=== PATIENT | male | born 1960 | race Caucasian/White ===

== ENCOUNTER 2023-05-20 07:39 | Outpatient (OUT) | payer OTHER, SELFPAY ==
[2023-05-20 08:13] LABS: Basophils Absolute Auto 0.1 10^3/uL (0.0-0.1); Basophils Percent Auto 1.2 % (0.2-2.0); Eosinophils Absolute Auto 0.2 10^3/uL (0.0-0.7); Eosinophils Percent Auto 3.1 % (0.9-7.0); Hematocrit 46.5 % (42.0-54.0); Immature Granulocytes Abs Auto 0.02 10^3/uL (0.00-0.03); Immature Granulocytes Pct Auto 0.3 % (0.0-0.5); Lymphocytes Absolute Auto 1.7 10^3/uL (1.2-3.8); Lymphocytes Percent Auto 29.3 % (20.5-60.0); Mean Corpuscular HGB Conc 34.4 g/dL (29.9-35.2); Mean Corpuscular Hemoglobin 30.5 pg (25.9-34.0); Mean Corpuscular Volume 88.7 fL (80.0-94.0); Mean Platelet Volume 10.6 fL (9.5-13.5); Monocytes Absolute Auto 0.6 10^3/uL (0.3-0.8); Monocytes Percent Auto 9.6 % (1.7-12.0); Neutrophils Absolute Auto 3.3 10^3/uL (1.4-6.5); Neutrophils Percent Auto 56.5 % (43.0-75.0); Platelet Count 228 10^3/uL (150-450); Red Blood Count 5.24 10^6/uL (4.70-6.10); Red Cell Distribution Width 12.5 % (11.0-15.0); White Blood Count 5.8 10^3/uL (4.0-11.0)
[2023-05-20 08:44] LABS: Alanine Aminotransferase 52 U/L (16-63); Albumin Globulin Ratio 1.2; Albumin Level 4.2 g/dL (3.4-5.0); Alkaline Phosphatase 55 U/L (46-116); Anion Gap 11.2; Aspartate Amino Transferase 25 U/L (15-37); BUN Creatinine Ratio 12.1; Calcium 8.9 mg/dL (8.5-10.1); Carbon Dioxide 28.8 mmol/L (21.0-32.0); Chloride 103 mmol/L (98-107); Chol HDL Ratio 2.5; Cholesterol 131 mg/dL (<=200); Estimated GFR (African America >60 (>=60); Estimated GFR (Non-African Ame 59 (>=60); Globulin 3.4 g/dL; Glucose 105 mg/dL (74-106); HDL Cholesterol 52 mg/dL (40-60); LDL Cholesterol Calculated 66.6 mg/dL; Sodium 139 mmol/L (136-145); Total Protein 7.6 g/dL (6.4-8.2); Triglycerides 62 mg/dL (<=150); VLDL CHOLESTEROL 12.4 mg/dL
== END 2023-05-20 07:40 | disposition home or self-care (01) ==
LOC: LAB 07:39
PROVIDERS: PCP Internal Medicine; Visit Provider Internal Medicine
DX: I10 Essential (primary) hypertension (principal); R00.2 Palpitations; K21.9 Gastro-esophageal reflux disease without esophagitis; E78.00 Pure hypercholesterolemia, unspecified; Z12.5 Encounter for screening for malignant neoplasm of prostate
CPT/HCPCS: 36415; 80053; 80061; 85025; G0103

== ENCOUNTER 2024-09-22 07:04 | Outpatient (OUT) | payer OTHER, SELFPAY ==
--- OUTSIDE RECORDS SUMMARY | 2024-09-22 07:08 | XMS_ITS | CCD ---
Author Organization [facility] Care Team Providers Care [employer] Supervisor Name Role Phone ZEKE, DR ROLON Attending Unavailable ZEKE, DR ROLON Consulting Unavailable ZEKE, DR ROLON Primary Care Unavailable ZEKE, DR ROLON Admitting Unavailable Zeke, Gutierrze Unavailable Allergies Allergy Classification Reported Allergen(s) Allergy Type Date of Onset Reaction(s) Facility (6 sources) Lisinopril Drug Allergy Unknown [facility] Other (3 sources) patient allergy list reviewed by nurse or physicia Propensity to adverse reactions Comment:Done [facility] Other Medications Current Medications Medication Drug Class(es) Dates Sig (Normalized) Sig (Original) amLODIPine 2.5 mg oral tablet (10 sources) Dihydropyridine Calcium Channel Wilber Start: 05-08-2024 take 1 tablet by mouth twice daily Amlodipine 2.5 mg tablet Active 2.5 MG PO Twice daily 180 90 May 08, 2024 8:58am Start: 04-18-2024 End: 05-08-2024 take 1 tablet by mouth every twelve hours Amlodipine 2.5 mg tablet Discontinued 0 .ROUTE .COMPLEX 180 April 18, 2024 1:01pm May 08, 2024 9:00am TAKE 1 TABLET BY MOUTH EVERY 12 HOURS Start: 11-17-2023 End: 04-18-2024 take 1 tablet by mouth twice daily Amlodipine 2.5 mg tablet Discontinued 2.5 MG PO Twice daily November 16, 2023 11:00pm April 18, 2024 1:01pm Start: 07-03-2022 take 1 tablet by heather th every twelve hours amLODIPine Besylate 2.5 MG 1 tablet Orally every 12 hours for 90 days Jun, Active Start: 07-03-2022 amLODIPine Bes ylate 2.5 MG 1 tablet every night at bedtime Orally Once a day Jun, Active carvedilol 12.5 mg oral tablet (13 sources) alpha-Adrenergic Wilber, beta-Adrenergic Wilber Start: 11-17-2023 End: 05-08-2024 take 1 tablet by mouth twice daily at mealtime Carvedilol 12.5 mg tablet Active 12.5 MG PO Twice daily 180 May 08, 2024 8:58am must administer with a meal/food Start: 09-13-2023 End: 11-17-2023 take 1 tablet by mouth twice daily at mealtime Carvedilol 6.25 mg tablet Discontinued 6.25 MG PO Twice daily 180 September 13, 2023 3:49pm November 17, 2023 2:50pm must administer with a meal/food take 1 tablet by heather th every twelve hours Carvedilol 6.25 MG 1 tablet Orally Twice a day for 90 days Active hydroCHLOROthiazide 12.5 mg / olmesartan medoxomil 20 mg oral tablet (9 sources) Thiazide Diuretic, Angiotensin 2 Receptor Wilber Start: 05-08-2024 take 1 tablet by mouth once daily Olmesartan-Hydrochlorothiazide 20-12.5 mg tablet Active 1 TAB PO Daily 90 May 08, 2024 8:58am Start: 03-29-2024 End: 05-08-2024 take 1 tablet by mouth once daily Olmesartan-Hydrochlorothiazide 20-12.5 m g tablet Discontinued 0 .ROUTE .COMPLEX 180 March 29, 2024 12:33pm May 08, 2024 9:00am TAKE 1 TABLET BY MOUTH ONCE DAILY Start: 11-17-2023 End: 03-29-2024 take 1 tablet by mouth once daily Olmesartan-Hydrochlorothiazide 20-12.5 m g tablet Discontinued 1 TAB PO Daily November 16, 2023 11:00pm March 29, 2024 12:33pm Start: 10-09-2022 take 1 tablet by heather th every twenty-four hours Olmesartan Medoxomil-HCTZ 20-12.5 MG 1 t ablet Orally Once a day for 30 days Sep, Active omeprazole 40 mg delayed release oral capsule (9 sources) Proton Pump Inhibitor Start: 05-08-2024 Omeprazole 40 mg capsule,delayed release(DR/EC) Active 40 MG PO Daily 90 May 08, 2024 8:59am Take on empty stomach, 30 minutes prior to bkfst Start: 11-17-2023 End: 05-08-2024 take 1 capsule by mouth once daily Omeprazole 40 mg capsule,delayed release(DR/EC) Discontinued 40 MG PO Daily November 16, 2023 11:00pm May 08, 2024 9:00am Omeprazole 40 MG TAKE 1 CAPSULE BY MOUTH ONCE A DAY ON AN EMPTY STOMACH FOLLOWED IN 30 MINUTES BY BREAKFAST Orally Once a day for 90 days Active rosuvastatin calcium 20 mg oral tablet (10 sources) HMG-CoA Reductase Inhibitor Start: 05-08-2024 take 1 tablet by mouth once daily Rosuvastatin 20 mg tablet Active 20 MG PO Daily May 08, 2024 8:59am Start: 05-05-2024 End: 05-08-2024 take 1 tablet by mouth once daily in the evening Rosuvastatin 20 mg tablet Discontinued 0 .ROUTE .COMPLEX May 05, 2024 5:22pm May 08, 2024 9:00am TAKE 1 TABLET BY MOUTH ONCE DAILY IN THE EVENING Start: 11-17-2023 End: 05-05-2024 take 1 tablet by mouth once daily Rosuvastatin 20 mg tablet Discontinued 20 MG PO Daily November 16, 2023 11:00pm May 05, 2024 5:22pm Start: 06-01-2022 take 1 tablet by heather th once daily in the evening Rosuvastatin Calcium 20 MG 1 tablet Orally Once a day, in the evening for 90 days May, Active triamcinolone acetonide 0.25 mg/ml topical cream (2 sources) Corticosteroid Start: 11-17-2023 Triamcinolone Acetonide 0.025 % cream Active 1 APPLIC TOPICAL Twice daily as needed for rash November 16, 2023 11:00pm Problems Active Problems Problem Classification Problem Date Documented Date Episodic/Chronic Cardiac dysrhythmias (12 sources) Palpitations; Translations: [Palpitations] 08-17-2023 Episodic Conditions associated with dizziness or vertigo (10 sources) Dizziness and giddiness; Translations: [Dizziness and giddiness] Resolved: 08-28-2019 05-08-2024 Episodic Disorders of lipid metabolism (20 sources) Pure hypercholesterolemia ; Translations: [Pure hypercholesterolemia , unspecified] Resolved: 03-23-2022 Chronic Esophageal disorders (12 sources) Gastro-esophageal reflux disease with esophagitis; Translations: [Gastroesophageal reflux disease with esophagitis without hemorrhage] 11-15-2023 Chronic Essential hypertension (20 sources) Essential hypertension; Translations: [Essential (primary) hypertension] Resolved: 08-28-2019 Chronic Hyperplasia of prostate (20 sources) Benign prostatic hypertrophy without outflow obstruction; Translations: [Benign prostatic hyperplasia without lower urinary tract symptoms] Chronic Other circulatory disease (3 sources) Low blood pressure; Translations: [Other hypotension] Episodic Other circulatory disease (1 source) Other hypotension; Translations: [Other hypotension] Episodic Other diseases of veins and lymphatics (6 sources) Peripheral venous insufficiency; Translations: [Venous insufficiency (chronic) (peripheral)] Episodic Other diseases of veins and lymphatics (1 source) Venous insufficiency (chronic) (peripheral) Episodic Other ear and sense organ disorders (1 source) Impacted cerumen, bilateral; Translations: [Impacted cerumen, bilateral] Episodic Other inflammatory condition of skin (5 sources) Acne rosacea, papular type; Translations: [Other rosacea] Chronic Other inflammatory condition of skin (3 sources) Rosacea; Translations: [Other rosacea] Chronic Other inflammatory condition of skin (2 sources) Other rosacea; Translations: [Acne rosacea, papular type] Chronic Other nutritional; endocrine; and metabolic disorders (6 sources) Obesity caused by energy imbalance; Translations: [Other obesity due to excess calories] Chronic Other nutritional; endocrine; and metabolic disorders (6 sources) Body mass index 30+ - obesity; Translations: [Body mass index (BMI) 30.0-30.9, adult] Chronic Other nutritional; endocrine; and metabolic disorders (2 sources) Other obesity due to excess calories Chronic Other nutritional; endocrine; and metabolic disorders (2 sources) Body mass index (BMI) 30.0-30.9, adult Chronic Other nutritional; endocrine; and metabolic disorders (3 sources) Obesity; Translations: [Obesity, unspecified] Chronic Other nutritional; endocrine; and metabolic disorders (1 source) Obesity, unspecified; Translations: [Obesity, unspecified] Chronic Other nutritional; endocrine; and metabolic disorders (3 sources) Overweight; Translations: [Overweight] Episodic Other nutritional; endocrine; and metabolic disorders (1 source) Overweight; Translations: [Overweight] Episodic Other screening for suspected conditions (not mental disorders or infectious disease) (6 sources) Encounter for screening for malignant neoplasm of prostate; Translations: [Encounter for screening for malignant neoplasm of colon] Onset: 04-23-2022 Episodic Comment on above: PSA: 2.4 - 03/2021, 2.84 - 04/2022, 2.3 - 05/2023 Screening and history of mental health and substance abuse codes (1 source) Encounter for screening for depression; Translations: [Encounter for screening for depression] Episodic Past or Other Problems Problem Classification Problem Date Documented Da te Episodic/Chronic Esophageal disorders (4 sources) Esophageal disorders; Translations: [Gastro-esophageal reflux disease with esophagitis, without bleeding] Other ear and sense organ disorders (7 sources) Impacted cerumen; Translations: [Impacted cerumen] Onset: 05-21-2017 Resolved: 08-28-2019 Episodic Other non-traumatic joint disorders (3 sources) Arthralgia of the upper arm; Translations: [Pain in unspecified elbow] Resolved: 08-28-2019 Episodic Other non-traumatic joint disorders (1 source) Pain in unspecified elbow; Translations: [Pain in unspecified elbow] Resolved: 08-28-2019 Episodic Other nutritional; endocrine; and metabolic disorders (6 sources) Body mass index 25-29 - overweight; Translations: [Body mass index 28.0-28.9, adult] Onset: 05-21-2017 Episodic Unclassified (1 source) Special screening for malignant neoplasm of prostate; Translations: [Special screening for malignant neoplasm of prostate] Onset: 04-25-2014 Resolved: 08-28-2019 Unclassified (1 source) Body mass index 29.0-29.9, adult; Translations: [Body mass index 29.0-29.9, adult] Onset: 05-21-2017 Unclassified (1 source) Body mass index 28.0-28.9, adult; Translations: [Body mass index 28.0-28.9, adult] Onset: 05-21-2017 Unclassified (1 source) Routine general medical examination at health care facility; Translations: [Routine general medical examination at health care facility] Onset: 04-25-2014 Resolved: 08-28-2019 Results Test Name Value Interpretation Reference Range Facil ity CBC AUTO DIFFon 04-20-2022 BASO # 0.1 103/ul Normal 0.0-0.1 [facility] Comment on above: Performed By: #### C BC #### [facility] [address] [address] [address] Khushi Santiago Basophils/100 WBC (Bld) 1.1 % Normal 0.2-2.0 [facility] Comment on above: Performed By: #### C BC #### [facility] [address] [place] [address] Dr. Khushi Santiago EO # 0.3 103/ul Normal 0.0-0.7 [facility] Comment on above: Performed By: #### C BC #### [facility] [address] [place] [address] Dr. Khushi Santiago Eosinophils/100 WBC (Bld) 5.2 % Normal 0.9-7.0 [facility] Comment on above: Performed By: #### C BC #### [facility] [address] [place] [address] Dr. Khushi Santiago Erythrocyte distribution width (RBC) [Ratio] 12.6 % Normal 11.0-15.0 [facility] Comment on above: Performed By: #### C BC #### [facility] [address] [place] [address] Dr. Khushi Santiago Hematocrit (Bld) [Volume fraction] 45.2 % Normal 42.0-54.0 [facility] Comment on above: Performed By: #### C BC #### [facility] [address] [place] [address] Dr. Khushi Santiago Hemoglobin (Bld) [Mass/Vol] 16.7 g/dL Normal 14.0-18.0 [facility] Comment on above: Performed By: #### C BC #### [facility] [address] [place] [address] Dr. Khushi Santiago IG # 0.02 10e3/ul Normal 0.00-0.03 [facility] Comment on above: Performed By: #### C BC #### [facility] [address] [place] [address] Dr. Khushi Santiago IG % 0.3 % Normal 0.0-0.5 [facility] Comment on above: Performed By: #### C BC #### [facility] [address] [address] [address] Khushi Santiago LYMPH # 1.8 103/ul Normal 1.2-3.8 [facility] Comment on above: Performed By: #### C BC #### [facility] [address] [place] [address] Dr. Khushi Santiago Lymphocytes/100 WBC (Bld) 28.3 % Normal 20.5-60.0 [facility] Comment on above: Performed By: #### C BC #### [facility] [address] [place] [address] Dr. Khushi Santiago MANUAL DIFF REQ NO Normal [facility] Comment on above: Performed By: #### C BC #### [facility] [address] [place] [address] Dr. Khsuhi Santiago MCH (RBC) [Entitic mass] 30.1 pg Normal 25.9-34.0 [facility] Comment on above: Performed By: #### C BC #### [facility] [address] [place] [address] Dr. Khushi Santiago MCHC (RBC) [Mass/Vol] 36.9 g/dL Critically high 29.9-35.2 [facility] Comment on above: Performed By: #### C BC #### [facility] [address] [place] [address] Dr. Khushi Santiago MCV (RBC) [Entitic vol] 81.6 fL Normal 80.0-94.0 [facility] Comment on above: Performed By: #### C BC #### [facility] [address] [place] [address] Dr. Khushi Santiago MONO # 0.8 103/ul Normal 0.3-0.8 [facility] Comment on above: Performed By: #### C BC #### [facility] [address] [place] [address] Dr. Khushi Santiago Monocytes/100 WBC (Bld) 13.3 % Critically high 1.7-12.0 [facility] Comment on above: Performed By: #### C BC #### [facility] [address] [address] [address] Khushi Santiago NEUT # 3.3 103/ul Normal 1.4-6.5 [facility] Comment on above: Performed By: #### C BC #### [facility] [address] [address] [address] Khushi Santiago Neutrophils/100 WBC (Bld) 51.8 % Normal 43.0-75.0 [facility] Comment on above: Performed By: #### C BC #### [facility] [address] [place] [address] Dr. Khushi Santiago Platelet mean volume (Bld) [Entitic vol] 9.9 fL Normal 9.5-13.5 [facility] Comment on above: Performed By: #### C BC #### [facility] [address] [place] [address] Dr. Khushi Santiago PLT 214 103/ul Normal 150-450 [facility] Comment on above: Performed By: #### C BC #### [facility] [address] [place] [address] Dr. Khushi Santiago RBC 5.54 106/ul Normal 4.70-6.10 [facility] Comment on above: Performed By: #### C BC #### [facility] [address] [place] [address] Dr. Khushi Santiago WBC 6.3 103/ul Normal 4.0-11.0 [facility] Comment on above: Performed By: #### C BC #### [facility] [address] [place] [address] Dr. Khushi Santiago LIPID PROFILEon 04-20-2022 CHOL-HDL RATIO NORM SEE BELOW Normal [facility] Comment on above: Result Comment: 3.3 - 4.4 LOW RISK 4.4 - 7.1 AVERAGE RISK 7.1 - 11.0 MODERATE RISK >11.0 HIGH RISK Performed By: #### L IPID, CMP #### [facility] [address] [place] [address] Dr. Khushi Santiago Cholesterol [Mass/Vol] 131 mg/dL Normal <=200 [facility] Comment on above: Performed By: #### L IPID, CMP #### [facility] [address] [address] [address] Khushi Santiago Cholesterol in HDL [Mass/Vol] 52 mg/dL Normal 40-60 [facility] Comment on above: Performed By: #### L IPID, CMP #### [facility] [address] [address] [address] Khushi Santiago Cholesterol in LDL [Mass/Vol] 59.6 mg/dL Normal [facility] Comment on above: Performed By: #### L IPID, CMP #### [facility] [address] [address] [address] Khushi Santiago Cholesterol.total/C holesterol in HDL [Mass ratio] 2.5 {ratio} Normal [facility] Comment on above: Performed By: #### L IPID, CMP #### [facility] [address] [address] [address] Khushi Santiago HDL NORMAL > or = 60 mg/dl - LO W CARDIOVASCULAR RISK <40 mg/dl - HIGH CARDIOVASCULAR RISK Normal [facility] Comment on above: Performed By: #### L IPID, CMP #### [facility] [address] [address] [address] Khushi Santiago LDL CALC NORMAL SEE BELOW Normal [facility] Comment on above: Result Comment: <100 mg/dl OPTIMAL 100 - 129 mg/dl NEAR OR ABOVE OPTIMAL 130 - 159 mg/dl BORDERLINE HIGH 160 - 189 mg/dl HIGH >190 mg/dl VERY HIGH Performed By: #### L IPID, CMP #### [facility] [address] [address] [address] Khushi Santiago Triglyceride [Mass/Vol] 97 mg/dL Normal <=150 [facility] Comment on above: Performed By: #### L IPID, CMP #### [facility] [address] [address] [address] Khushi Santiago VLDL CALC 19.4 mg/dL Normal [facility] Comment on above: Performed By: #### L IPID, CMP #### [facility] [address] [address] [address] Khushi Santiago PROF 14(COMP METB)on 023 Albumin [Mass/Vol] 4.2 g/dL Normal 3.4-5.0 [facility] Comment on above: Performed By: #### L IPID, CMP #### [facility] [address] [address] [address] Khushi Santiago Albumin/Globulin [Mass ratio] 1.3 {ratio} Normal [facility] Comment on above: Performed By: #### L IPID, CMP #### [facility] [address] [address] [address] Khushi Santiago ALP [Catalytic activity/Vol] 69 U/L Normal 46-116 [facility] Comment on above: Performed By: #### L IPID, CMP #### [facility] [address] [address] [address] Khushi Santiago ALT [Catalytic activity/Vol] 51 U/L Normal 16-63 [facility] Comment on above: Performed By: #### L IPID, CMP #### [facility] [address] [address] [address] Khushi Santiago Anion gap [Moles/Vol] 15.9 mmol/L Normal [facility] Comment on above: Performed By: #### L IPID, CMP #### [facility] [address] [address] [address] Khushi Santiago AST [Catalytic activity/Vol] 30 U/L Normal 15-37 [facility] Comment on above: Performed By: #### L IPID, CMP #### [facility] [address] [address] [address] Khushi Santiago Bilirubin [Mass/Vol] 0.7 mg/dL Normal 0.2-1.0 [facility] Comment on above: Performed By: #### L IPID, CMP #### [facility] [address] [address] [address] Khushi Santiago Calcium [Mass/Vol] 9.0 mg/dL Normal 8.5-10.1 [facility] Comment on above: Performed By: #### L IPID, CMP #### [facility] [address] [address] [address] Khushi Santiago Chloride [Moles/Vol] 105 mmol/L Normal 98-107 [facility] Comment on above: Performed By: #### L IPID, CMP #### [facility] [address] [address] [address] Khushi Santiago CO2 [Moles/Vol] 26.4 mmol/L Normal 21.0-32.0 [facility] Comment on above: Performed By: #### L IPID, CMP #### [facility] [address] [address] [address] Khushi Santiago Creatinine [Mass/Vol] 1.16 mg/dL Normal 0.70-1.30 [facility] Comment on above: Performed By: #### L IPID, CMP #### [facility] [address] [place] [address] Dr. Khushi Santiago EGFR-AF ECUADOREAN >60 Normal >=60 [facility] Comment on above: Performed By: #### L IPID, CMP #### [facility] [address] [place] [address] Dr. Khushi Santiago EGFR-NON AF ECUADOREAN >60 Normal >=60 [facility] Comment on above: Performed By: #### L IPID, CMP #### [facility] [address] [place] [address] Dr. Khushi Santiago Globulin (S) [Mass/Vol] 3.2 g/dL Normal [facility] Comment on above: Performed By: #### L IPID, CMP #### [facility] [address] [address] [address] Khushi Santiago Glucose [Mass/Vol] 107 mg/dL Critically high 74-106 [facility] Comment on above: Performed By: #### L IPID, CMP #### [facility] [address] [place] [address] Dr. Khushi Santiago Potassium [Moles/Vol] 4.3 mmol/L Normal 3.5-5.1 [facility] Comment on above: Performed By: #### L IPID, CMP #### [facility] [address] [address] [address] Khushi Santiago Protein [Mass/Vol] 7.4 g/dL Normal 6.4-8.2 [facility] Comment on above: Performed By: #### L IPID, CMP #### [facility] [address] [address] [address] Khushi Santiago Sodium [Moles/Vol] 143 mmol/L Normal 136-145 [facility] Comment on above: Performed By: #### L IPID, CMP #### [facility] [address] [address] [address] Khushi Santiago Urea nitrogen [Mass/Vol] 17.0 mg/dL Normal 7.0-18.0 [facility] Comment on above: Performed By: #### L IPID, CMP #### [facility] [address] [address] [address] Khushi Santiago Urea nitrogen/Creatinine [Mass ratio] 14.7 mg/mg Normal [facility] Comment on above: Performed By: #### L IPID, CMP #### [facility] [address] [address] [address] Khushi Santiago Consent for COVID Vaccineon 07-25-2020 SARS-CoV-2 (COVID-19) RNA RONNIE+probe Ql (Unsp spec) [id number]# 1.00CD:127 Normal [facility] Consent for COVID Vaccineon 06-29-2020 SARS-CoV-2 (COVID-19) RNA RONNIE+probe Ql (Unsp spec) [id number]# 1.00CD:127 Normal [facility] Consent for Treatmenton 06-11 Consent for Treatment [id number]# 1.00CD:127 Normal [facility] Coding Summary.on 06-27-2020 Coding Summary. CODING DATE: 06/27/2020 FINAL [facility] STATUS: PAYOR: Donta APC DESCRIPTION [employer] - Level 1B ($11-$20) ADMIT DX: REASON FOR VISIT DX: Z23 Encounter for immunization FINAL DX: PRINCIPAL: Z23 Encounter for immunization SECONDARY: PYMT PROC APC STAT DESCRIPTION DOCTOR NAME DATE NOTE: The code number assigned matches the documented diagnosis and / or procedure in the patient's chart. However, the narrative phrase printed from the coding software may appear abbreviated, or result in slightly different terminology. Coded By: Sia Alanis Date Saved: 06/27/2020 03:45 pm [facility] Coding Summary.on 05-23-2020 Coding Summary. CODING DATE: 05/23/2020 FINAL [facility] STATUS: Home (Routine DC) PAYOR: Donta APC DESCRIPTION 5524 Level 4 Imaging without Contrast ADMIT DX: REASON FOR VISIT DX: I11.0 Hypertensive heart disease with heart failure FINAL DX: PRINCIPAL: I11.0 Hypertensive heart disease with heart failure SECONDARY: OTILIA PROC APC STAT DESCRIPTION DOCTOR NAME DATE NOTE: The code number assigned matches the documented diagnosis and / or procedure in the patient's chart. However, the narrative phrase printed from the coding software may appear abbreviated, or result in slightly different terminology. Coded By: Monika Dunham CphT Date Saved: 05/23/2020 12:46 pm [facility] Consent for Treatmenton Consent for Treatment [id number]#1 .00CD:127 [facility] Pre-Certification Formon Pre-Certification Form [id number] #1.00CD:127 [facility] Physician Orderon 04-08-2020 Physician Order [id number]#1. 00CD:127 [facility] Pre-Certification Formon Pre-Certification Form [id number]# 1.00CD:127 [facility] Vital Signs Date Time Vital Sign Value Performing Clinician Facility 05-08-2024 08:38-0500 Body height 175.26 cm [facility] 05-08-2024 08:38-0500 Body mass index (BMI) [Ratio] 30.7 kg/m2 [facility] 05-08-2024 08:38-0500 Body weight 94.34 kg [facility] 05-08-2024 08:38-0500 Diastolic blood pressure 83 mm[Hg] [facility] 05-08-2024 08:38-0500 Heart rate 68 /min [facility] 05-08-2024 08:38-0500 Respiratory rate 12 /min [facility] 05-08-2024 08:38-0500 Systolic blood pressure 122 mm[Hg] [facility] 11-17-2023 15:26-0400 Body height 175.26 cm [facility] 11-17-2023 15:26-0400 Body mass index (BMI) [Ratio] 30.2 kg/m2 [facility] 11-17-2023 15:26-0400 Body weight 92.75 kg [facility] 11-17-2023 15:26-0400 Diastolic blood pressure 81 mm[Hg] [facility] 11-17-2023 15:26-0400 Heart rate 76 /min [facility] 11-17-2023 15:26-0400 Respiratory rate 12 /min [facility] 11-17-2023 15:26-0400 Systolic blood pressure 118 mm[Hg] [facility] 05-05-2023 15:00-0500 Body height 175.26 cm Gutierrez Ball Other [facility] [employer] Other 05-05-2023 15:00-0500 Body mass index (BMI) [Ratio] 30.51 kg/m2 Gutierrez Ball Other [employer] Other 05-05-2023 15:00-0500 Body weight 93.71 kg Gutierrez Ball Other [facility] [employer] Other 05-05-2023 15:00-0500 Diastolic blood pressure 86 mm[Hg] Gutierrez Ball Other [employer] Other 05-05-2023 15:00-0500 Respiratory rate 12 /min Gutierrez Ball Other [employer] Other 05-05-2023 15:00-0500 Systolic blood pressure 132 mm[Hg] Gutierrez Ball Other [employer] Other 09-28-2022 15:00-0400 Body height 175.26 cm Gutierrez Ball Other [employer] Other 09-28-2022 15:00-0400 Body mass index (BMI) [Ratio] 30.51 kg/m2 Gutierrez Ball Other [employer] Other 09-28-2022 15:00-0400 Body weight 93.71 kg Gutierrez Ball Other [employer] Other 09-28-2022 15:00-0400 Diastolic blood pressure 85 mm[Hg] Gutierrez Ball Other [employer] Other 09-28-2022 15:00-0400 Respiratory rate 12 /min Gutierrez Ball Other [employer] Other 09-28-2022 15:00-0400 Systolic blood pressure 139 mm[Hg] Gutierrez Ball Other [employer] Other Encounters Encounter Date Encounter Type Care Provider Facility Start: 05-08-2024 End: 05-08-2024 ambulatory [facility] Work Phone: Start: 05-08-2024 End: 05-08-2024 Encounter for general adult medical examination without abnormal findings [facility] Start: 05-08-2024 End: 05-08-2024 Patient encounter procedure [facility] Work Phone: Start: 05-04-2024 Patient encounter status [facility] Start: 11-17-2023 End: 11-17-2023 ambulatory [facility] Work Phone: Start: 11-17-2023 End: 11-17-2023 Patient encounter procedure [facility] Work Phone: Start: 05-05-2023 End: 05-05-2023 ambulatory Gutierrez Kyle Other [employer] Other Start: 05-05-2023 Encounter for genera l adult medical examination without abnormal findings Gutierrez Kyle [facility] Start: 05-05-2023 Periodic preventive med est patient 40-64yrs Gutierrez Kyle [facility] Start: 04-06-2023 End: 04-06-2023 ambulatory Gutierrez Kyle Other [employer] Other Start: 04-06-2023 Telephone encounter Gutierrez Ball FP [facility] Start: 03-08-2023 End: 03-08-2023 ambulatory Gutierrez Kyle Other [employer] Other Start: 03-08-2023 Telephone encounter Gutierrez Ball FP [facility] Start: 11-13-2022 End: 11-13-2022 ambulatory Gutierrez Kyle Other [employer] Other Start: 11-13-2022 Telephone encounter Gutierrez Ball [facility] Start: 10-09-2022 End: 10-09-2022 ambulatory Gutierrez Ball Other [employer] Other Start: 10-09-2022 Telephone encounter Gutierrez Ball [facility] Start: 09-28-2022 End: 09-28-2022 ambulatory Gutierrez Ball Other [employer] Other Start: 09-28-2022 Office outpatient vi sit 15 minutes Gutierrez Kyle [facility] Start: 04-23-2022 Encounter for genera l adult medical examination without abnormal findings DR GUTIERREZ KYLE [facility] Start: 04-20-2022 End: 04-21-[address] GUTIERREZ KYLE Facility:[facility] Start: 04-20-2022 End: 04-21-2022 Encounter for general adult medical examination without abnormal findings DR GUTIERREZ KYLE Facility:[facility] Start: 03-23-2022 Adult health examination Gutierrez Kyle Other [facility] [employer] Other Start: 03-23-2022 Encounter for genera l adult medical examination without abnormal findings Gutierrez Kyle Other [facility] [employer] Other Procedures Date Procedure Procedure Detail Performing Clinician Start: 04-20-[address] QUEZADA IN [place] Comment on above: Performed By: #### P [facility] #### [facility] [address] [place] [address] Dr. Khushi Santiago Start: 04-25-2014 End: 08-28-2019 General examination of patient Gutierrez Kyle Other Start: 04-25-2014 End: 08-28-2019 Screening for malignant neoplasm of prostate Gutierrez Kyle Other Depression screening Nancy Kyle Other Screening for malign ant neoplasm of prostate Gutierrez Kyle Other Plan of Treatment Date Care Activity Detail Author Comprehensive metabo lic 2000 panel - Serum or Plasma [facility] Payers Date Payer Category Payer Unknown [id number] 1958 Self-pay Private Health Insurance 003 [id number] Unknown [id number] .. [id number] Social History Date Type Detail Facility Sex Assigned At [facility] [employer] Other Start: 1960 Sex Assigned At Male [facility] Work Phone: Start: 05-08-2024 Sex Male (finding) [facility] Clinical Notes 05-22-2020 to 05-05-2023 Note Date & Type Note Facility 05-05-2023 Evaluation note Encounter Date Diagnosis Assessment Notes Apr, Wellness examination (ICD-10 - Z00.00) Healthy diet and exercise. Reviewed age-appropriate preventive testing recommended. Apr, Primary hypertension (ICD-10 - I10) This patient is instructed to consume a healthy, low-fat, low-salt diet. They are also encouraged to continue exercise to achieve/maintain a normal BMI. Patient is instructed on home BP measurements: - rest for 5 minutes w/o talking.- positioned w/ feet on floor and arm supported.- average best 2/3 readings w/ goal < 135/85.- update office w/ home readings in 2 weeks. Apr, Hypercholesterolemia (ICD-10 - E78.00) Instructed on diet and exercise with continued statin therapy.Discusse d the beneficial effects of lowering cholesterol in reducing the risk for cerebrovascular and cardiovascular disease. Apr, Other obesity due to excess calories (ICD-10 - E66.09) This patient has been instructed on a low-fat, high-fiber diet. They are instructed to reduce calories, portion sizes and snacks. It is recommended that they exercise for 30 minutes, 3-5 times weekly. Apr, Body mass index [BMI] 30.0-30.9, adult (ICD-10 - Z68.30) Apr, Screen for colon cancer (ICD-10 - Z12.11) Due for CRC screening - sent order for Cologuard He denies change in bowel habits, appetite or weight He denies melena or hematochezia Apr, Screening PSA (prostate specific antigen) (ICD-10 - Z12.5) Yearly DONOVAN and PSA [employer] Other 12-26-2023 Evaluation note* Encounter Date Diagnosis Assessment Notes Treatment Notes Treatment Clinical Notes Mar, Primary hypertension (ICD-10 - I10) Mar, Essential hypertension (ICD-10 - I10) [employer] Other 11-27-2023 Evaluation note* Encounter Date Diagnosis Assessment Notes Treatment Notes Treatment Clinical Notes Feb, Primary hypertension (ICD-10 - I10) [employer] Other 06-30-2023 Evaluation note* Encounter Date Diagnosis Assessment Notes Treatment Notes Treatment Clinical Notes Sep, Essential hypertension (ICD-10 - I10) [employer] Other 06-19-2023 Evaluation note* Encounter Date Diagnosis Assessment Notes Treatment Notes Treatment Clinical Notes Sep, Primary hypertension (ICD-10 - I10) This patient is instructed to consume a healthy, low-fat, low-salt diet. They are also encouraged to continue exercise to achieve/maintain a normal BMI. Sep, Other obesity due to excess calories (ICD-10 - E66.09) This patient has been instructed on a low-fat, high-fiber diet. They are instructed to reduce calories, portion sizes and snacks. It is recommended that they exercise for 30 minutes, 3-5 times weekly. Sep, Body mass index [BMI] 30.0-30.9, adult (ICD-10 - Z68.30) Sep, Chronic venous insufficiency (ICD-10 - I87.2) Avoid salt and elevate lower extremities, support stockings, inspect legs and feet daily for blisters and ulcerations. [employer] Other 02-10-2021 NoteEchocardiology Procedure Exam Date/Time Accession # Ordering Dr. Alfaro Transthoracic 05/21/2020 15:42 [facility] [id number] GUTIERREZ KYLE DO Complete CPT code 30086 Reason for Exam (Echo Transthoracic Complete) Essential (primary) hypertension Report Patient Height: 69 Patient Weight:195 Blood Pressure: 151/88 1. LVIDd m(3.8-5.8cm)w(3.8-5.2cm) 4.7 cm 2. LVIDs m(2.1-3.9cm)w(2.2-3.5cm) 2.9 cm 3. IVSd m(0.6-1.0cm) 1.1 cm 4. LVPWd (0.6-1.0cm) 0.91 cm 5. LAs (2.7-4.0cm) 3.8 cm 6. LA Vol. Index (16-34 mL/m2) 22 mL/m2 7. AOd Root (3.0-3.4cm) 3.1 cm 8. AO Annulus (2.3-2.6cm) _ cm 9. AO Sinus of Valsalva (3.0-3.4cm) _ cm 10. AO Sinotubular Junction (2.6-2.9cm) _ cm 11. Ascending Aorta (2.7-3.0cm) _ cm 12. RVIDd (2.0-3.0cm) 3.1 cm 13. AoV Peak Gradient _ mmHg 14. AoV Mean Gradient _ mmHg 15. LVOT Diam _ cm INDICATIONS: Hypertension and dizziness. M-MODE/2D/DOPPLER REPORT : 1. Patient appears to have normal LV size and function with an LVEF of 65%. Patient has Stage I diastolic dysfunction. 2. Right ventricle is normal in size and function. 3. Left atrium is normal. 4. Right atrium is normal. 5. The aortic valve is normal and trileaflet. Patient has no aortic stenosis or aortic insufficiency. 6. Mitral valve shows trivial mitral regurgitation. 7. Pulmonary valve shows trivial pulmonary insufficiency. 8. Tricuspid valve shows trivial tricuspid regurgitation but unable to quantitate RVSP. 9. Pericardium is normal. 10. Interatrial septum appears to be aneurysmal. 11. Aorta is not well visualized. Echocardiology Report SUMMARY/CONCLUSION : 1. Normal LV size and function with an LVEF of 65%. 2. Stage I diastolic dysfunction. 3. Trivial tricuspid regurgitation, unable to quantitate RVSP. 4. No old echocardiograms for comparison. FINAL REPORT Signed (Electronic Signature): 05/22/2020 6:28 pm Signed by: Navid Cummins MD Transcribed by: pinky Technologist: [facility] [employer] Other Evaluation note* Diagnosis Onset Date Resolution Status GERD (gastroesophageal reflux disease) acute Hypercholesterolemia acute Hypertension acute [facility] Work Phone: Evaluation note* Diagnosis Onset Date Resolution Status Admit Date Benign paroxysmal positional vertigo of right ear acute April 8:30am GERD (gastroesophageal reflu x disease) acute May 08 8:30am Hypercholesterolemia acute 2024 8:30am Hypertension acute April 8:30am Screening PSA (prostate spec ific antigen) acute May 08 8:30am Wellness examination acute 2024 8:30am [facility] Work Phone: Hishkfj general Narrative - Reported* Type Description Date Medical History Benign prostatic hyperplasia wit h lower urinary tract symptoms Medical History Benign prostatic hyp erplasia without lower urinary tract symptoms Medical History Pure hypercholesterolemia Medical History Acne rosacea, papular type Medical History Gastro-esophageal re flux disease with esophagitis, without bleeding Medical History Essential hypertension Medical History Palpitation [employer] Other History general Narrative - Reported* Type Description Date Medical History Benign prostatic hyperplasia wit h lower urinary tract symptoms Medical History Benign prostatic hyp erplasia without lower urinary tract symptoms Medical History Pure hypercholesterolemia Medical History Acne rosacea, papular type Medical History Gastro-esophageal re flux disease with esophagitis, without bleeding Medical History Essential hypertension Medical History Palpitation Surgical History Problem Title : Non- Contributory Past Surgical History, Problem Status : Active, Surgical History Problem Title : past surgical history reviewed, Problem Description : past surgical history reviewed, Problem Comment : reviewed - no changes required, Problem Status : Resolved, [employer] Other History general Narrative - Reported* Type Description Date Medical History Benign prostatic hyperplasia wit h lower urinary tract symptoms Medical History Benign prostatic hyp erplasia without lower urinary tract symptoms Medical History Pure hypercholesterolemia Medical History Acne rosacea, papular type Medical History Gastro-esophageal re flux disease with esophagitis, without bleeding Medical History Essential hypertension Medical History Palpitation Surgical History No know Surgical history [employer] Other Summary Purpose Family History Relationship Condition Age at Onset Recorded Date/T mira father Heart disease Unknown mother Malignant neoplasm Unknown Heart disease Unknown Advance Directives Advance Directive Response Recorded Date/ Time Advance Directives No May 10, 2023 12:55pm Advance Directive Response Recorded Date/ Time Advance Directives No May 10, 2023 11:55am Chief Complaint and Reason for Visit Chief Complaint 6 month follow up Reason for Visit GERD (gastroesophage al reflux disease) Hypercholesterolemia Hypertension Chief Complaint Admit Date wellness May 08, 2024 8 :30am Reason for Visit Admit Date Benign paroxysmal positional vertigo of right ear May 08, 2024 8:30am GERD (gastroesophageal reflux disease) J anuary 2024 8:30am Hypercholesterolemia May 08, 2024 8:30am Hypertension May 08, 2024 8 :30am Screening PSA (prostate specific antigen ) May 08, 2024 8:30am Wellness examination May 08, 2024 8:30am Additional Source Comments (unrecognized sect ion and content) No Status Records FoundNo Status Records Found INFORMATION SOURCE (unrecogn ized section and content) DATE CREATED AUTHOR 10/12/2020 [facility] DATE CREATED AUTHOR AUTHOR'S ORGANIZ ATION 04/23/2022 [facility] REASON FOR VISIT (unrecogniz ed section and content) BP checkBPRefillNo Informati onrefillwellness Care Teams (unrecognized sec tion and content) Team Status: Active Member Role Status Dates Gutierrez Kyle DO Primary Care Provider Active Team Status: Inactive Member Role Status Dates Gutierrez Kyle DO Primary Care Provide r, Attending Provider Active Start: November 17, 2023 End: November 17, 2023 Team Status: Inactive Member Role Status Dates Gutierrez Kyle DO Primary Care Provide r, Attending Provider Active Start: May 08, 2024 End: May 08, 2024 Goals (unrecognized section and content) Goals may be documented in a n alternate section FOR RECORDS PERTAINING TO PATIENTS WHO ARE OR HAVE BEEN ENROLLED IN A CHEMICAL DEPENDENCY/SUBSTANCEABUSE PROGRAM, SOME INFORMATION MAY BE OMITTED. This clinical summary was aggregated from multiple sources. Caution should be exercised in using it in the provision of clinical care. This summary normalizes information from multiple sources, and as a consequence, information in this document may materially change the coding, format and clinical context of patient data. In addition, data may be omitted in some cases. CLINICAL DECISIONS SHOULD BE BASED ON THE PRIMARY CLINICAL RECORDS. [facility] [employer] provides no warranty or guarantee of the accuracy or completeness of information in this document.
[2024-09-22 07:27] LABS: Basophils Absolute Auto 0.1 10^3/uL (0.0-0.1); Eosinophils Absolute Auto 0.2 10^3/uL (0.0-0.7); Eosinophils Percent Auto 3.3 % (0.9-7.0); Hematocrit 46.2 % (42.0-54.0); Hemoglobin 16.4 g/dL (14.0-18.0); Immature Granulocytes Abs Auto 0.02 10^3/uL (0.00-0.03); Immature Granulocytes Pct Auto 0.3 % (0.0-0.5); Lymphocytes Absolute Auto 1.7 10^3/uL (1.2-3.8); Lymphocytes Percent Auto 28.6 % (20.5-60.0); Mean Corpuscular HGB Conc 35.5 g/dL (29.9-35.2); Mean Corpuscular Hemoglobin 30.9 pg (25.9-34.0); Mean Platelet Volume 10.3 fL (9.5-13.5); Monocytes Absolute Auto 0.6 10^3/uL (0.3-0.8); Monocytes Percent Auto 10.3 % (1.7-12.0); Neutrophils Absolute Auto 3.3 10^3/uL (1.4-6.5); Neutrophils Percent Auto 56.5 % (43.0-75.0); Platelet Count 227 10^3/uL (150-450); Red Blood Count 5.31 10^6/uL (4.70-6.10); Red Cell Distribution Width 12.6 % (11.0-15.0); White Blood Count 5.8 10^3/uL (4.0-11.0)
[2024-09-22 10:51] LABS: Alanine Aminotransferase 40 U/L (16-63); Albumin Globulin Ratio 1.2; Alkaline Phosphatase 58 U/L (46-116); Anion Gap 14.2; Aspartate Amino Transferase 21 U/L (15-37); BUN Creatinine Ratio 13.1; Bilirubin Total 0.9 mg/dL (0.2-1.0); Carbon Dioxide 27.7 mmol/L (21.0-32.0); Chloride 104 mmol/L (98-107); Chol HDL Ratio 2.4; Cholesterol 116 mg/dL (<=200); Estimated GFR (African America >60 (>=60 mL/min/1.73m^2); Estimated GFR (Non-African Ame 56 (>=60 mL/min/1.73m^2); Globulin 3.3 g/dL; Glucose 97 mg/dL (74-106); HDL Cholesterol 48 mg/dL (40-60); LDL Cholesterol Calculated 54.8 mg/dL; Potassium 3.9 mmol/L (3.5-5.1); Sodium 142 mmol/L (136-145); Total Protein 7.3 g/dL (6.4-8.2); Triglycerides 66 mg/dL (<=150); VLDL CHOLESTEROL 13.2 mg/dL
[2024-09-22 11:09] LABS: Prostate Specific Antigen Scrn 3.27 ng/mL (<=4.00)
== END 2024-09-22 07:05 | disposition home or self-care (01) ==
LOC: LAB 07:06
PROVIDERS: PCP Internal Medicine; Visit Provider Internal Medicine
DX: Z00.00 Encounter for general adult medical examination without abnormal findings (principal); E78.00 Pure hypercholesterolemia, unspecified; I10 Essential (primary) hypertension; Z12.5 Encounter for screening for malignant neoplasm of prostate
CPT/HCPCS: 36415; 80053; 80061; 85025; G0103